=== PATIENT | female | born 1950 | race Caucasian/White ===

== ENCOUNTER 2019-05-05 06:15 | Day surgery (SDC) | payer MEDICARE, OTHER ==
[~2019-05-05] VITALS: Ht 165.1 cm; Wt 80.7 kg
[~2019-05-05 06:15] MED LIST: AMLODIPINE BESY10 MG PO; ASPIRIN EC325 MG PO; ASTELIN137 MCG/0. NS; CALCIUM CITRAT200 MG PO; CARBIDOPA-LEVO1 EAC4 PO; CETIRIZINE HCL10 MG PO; DILAUDID2 MG PO; FLONASE2 SPRAY; LOSARTAN POTASS50 MG PO; MELOXICAM15 MG PO; MIRAPEX0.5 MG PO; NORCO 7.5-3251 EACH PO; OMEPRAZOLE20 MG PO; SIMVASTATIN20 MG PO; VITAMIN C500 M1 PO; VITAMIN D5000 UNIT PO
[2019-05-05] MEDS ORDERED: NEURONTIN400 MG PO (06:37)
[2019-05-05] MEDS ORDERED: NEUPRO1 EAC1 TD (06:51)
[2019-05-05] MEDS ORDERED: ROPINIROLE HC0.25 MG PO (06:52)
[2019-05-05] MEDS ORDERED: LIPITOR40 MG PO (06:53)
[2019-05-05] MEDS ORDERED: ULTRAM50 MG PO (06:54)
[2019-05-05] MEDS ORDERED: LEXAPRO10 MG PO (06:54)
[2019-05-05] MEDS ORDERED: DICLOFENAC SODI75 MG PO (06:54)
[2019-05-05] MEDS ORDERED: ASPIRIN81 MG PO (06:56)
[2019-05-05] MEDS ORDERED: FOLIC ACID0.8 MG PO (06:58)
[2019-05-05] MEDS ORDERED: WOMEN'S 50 PLU1 EACH PO (06:58)
[2019-05-05] MEDS ORDERED: FLONASE ALLERG9.9 ML NAS (06:59)
[2019-05-05] MEDS ORDERED: MAGNESIUM400 M1 PO (06:59)
[2019-05-05] MEDS ORDERED: VITAMIN E400 UNI2 PO (07:00)
[2019-05-05] MEDS ORDERED: PROBIOTIC1 EAC1 PO (07:00)
--- NOTE | 2019-05-05 09:10 | NUR ---
0845 UP TO BR. CONTS TO WAIT. IV PATENT. IN ROOM.
--- NOTE | 2019-05-05 11:25 | NUR ---
05/05/19 1125 Denise Santos 1116 PATIENT ARRIVE TO PACU AWAKE, BUT DROWSY. PATIENT DENIES PAIN OR NAUSEA. RESP EVEN AND UNLABORED, ROOM AIR SATS >93%. 1125 PATIENT DRINKING JUICE AND WATER. SPOUSE AT BEDSIDE.
--- NOTE | 2019-05-05 12:25 | NUR ---
PT ALERT, ORIENTED AND SUPPORTED BY HER BRITTANY. SHE IS WAITING VERY PATIENTLY-EVEN GRABBED A NAP WAITING. NO QUESTIONS, PT REQUESTED PRAYER. WILL FOLLOW NEEDED
--- NOTE | 2019-05-06 16:41 | OR ---
[facility] [address], [place] [address] Signed DATE OF OPERATION: 05/05/2019 SURGEON: Horace Hernandez MD PREOPERATIVE DIAGNOSIS: Longstanding gastroesophageal reflux, clinically managed with PPI medication. POSTOPERATIVE DIAGNOSES: 1. Proximal gastric polyps (mild). 2. Mild distal esophagitis without sign of Garsia's epithelium. PROCEDURE: Esophagogastroduodenoscopy with biopsy. ANESTHESIA: Intravenous sedation, fentanyl 100 mcg, Versed 5 mg. INDICATION: This 68-year-old white woman is a patient of TAO Barreto. She has longstanding gastroesophageal reflux, for which she has been treated with good clinical benefit using omeprazole 20 mg daily. She was advised by her insurance carrier that she should not be on a PPI medication. A directive by [facility] recommended repeat endoscopic evaluation. Notably, she has no family history of esophageal cancer and no symptoms of dysphagia. She does have distant history of breast cancer in the past with recurrence, but no evidence of disease currently. She is admitted at this time to undergo upper endoscopy to better characterize the current status of her esophageal inflammation issue and assess for other gastrointestinal problems. She understands the risks of bleeding, infection, and perforation and wished to proceed. Notably, her last upper endoscopy was 13 years ago. FINDINGS: The esophagus overall looked reasonably well. There was mild chronic distal esophagitis, but no stricture, no varices, no Garsia's epithelium. The flap valve was actually reasonably good. There were a few small proximal gastric polyps, likely related to longstanding PPI use. She had no sign of ulceration or neoplasm elsewhere. CLOtest was negative. DESCRIPTION OF PROCEDURE: The patient was brought to the endoscopy suite and placed in lateral decubitus position, given intravenous sedation to the point of slurred speech and nystagmus. [facility] Electronically Signed By: HORACE HERNANDEZ MD 05/06/19 1641 PATIENT NAME: BRIAN DE LEON OPERATIVE REPORT DATE OF : 50 REPORT #: [id number] PHYSICIAN: HORACE HERNANDEZ MD PCP: BRISA FIGUEREDO PAC REPORT IS CONFIDENTIAL AND NOT TO BE RELEASED WITHOUT AUTHORIZATION [facility] [address], [place] [address] Signed hypopharyngeal spray anesthesia had been given at the outset. A bite block was placed. After satisfactory sedation with full cardiopulmonary monitoring. An Olympus video upper endoscope was passed in the hypopharynx. The vocal cords appeared normal. The scope was advanced to the esophagus. Throughout its length, it looked normal except in the distal portion where there was mild chronic inflammation, but no sign of Garsia's epithelium, stricture, neoplasm or other issue. The scope was advanced to the stomach, which had a fair amount of bilious fluid in it. Rugal folds were normal. Bile was suctioned free. The scope was advanced to the antrum, which appeared normal. Pylorus was normal. Scope was passed through into the duodenum, which was also normal overall. Biopsies were taken to assess for celiac disease. The scope was drawn to the antrum for biopsies for both SUSANA and pathologic testing. Retroflexed view showed scattered proximal gastric polyps. A few installation service representative polyps were excised. The flap valve was relatively good considering her known clinical issue of reflux. The scope was straightened and withdrawn. Biopsies taken of the distal esophagus as well. Midesophageal biopsies were also obtained. The scope was removed. The patient was taken to recovery room in good condition. CONCLUDING DIAGNOSIS: Mild chronic distal esophagitis, well managed with PPI medication, longstanding. No evidence of neoplasm or other issue. PLAN: A change to Pepcid (non PPI medication) can be taken as a trial. I will write for it. She will return to see me in 4-6 weeks. We will assess response to therapy. MD KAYLIE Lu/JODY /[id number] cc: Brisa Figueredo PA-C Copies: BRISA FIGUEREDO PAC Electronically Signed By: HORACE HERNANDEZ MD 05/06/19 1641 PATIENT NAME: BRIAN DE LEON OPERATIVE REPORT DATE OF : 50 REPORT #: [id number] PHYSICIAN: HORACE HERNANDEZ MD PCP: BRISA FIGUEREDO REPORT IS CONFIDENTIAL AND NOT TO BE RELEASED WITHOUT AUTHORIZATION [address] [address] Signed ~ Electronically Signed By: HORACE HERNANDEZ MD 05/06/19 1641 PATIENT NAME: MOISESBRIAN OPERATIVE REPORT DATE OF : 50 REPORT #: [id number] PHYSICIAN: HORACE HERNANDEZ MD PCP: BRISA FIGUEREDO PAC REPORT IS CONFIDENTIAL AND NOT TO BE RELEASED WITHOUT AUTHORIZATION
== END 2019-05-05 12:00 | disposition home or self-care (01) ==
LOC: OPS 06:15 → DS 06:15 → OPS 06:45
PROVIDERS: Surgery
PROC: 0DB78ZX Excision of Stomach, Pylorus, Via Natural or Artificial Opening Endoscopic, Diagnostic (ICD-10-PCS; 2019-05-05)
PROC: 0DB68ZX Excision of Stomach, Via Natural or Artificial Opening Endoscopic, Diagnostic (ICD-10-PCS; 2019-05-05)
PROC: 0DB38ZX Excision of Lower Esophagus, Via Natural or Artificial Opening Endoscopic, Diagnostic (ICD-10-PCS; 2019-05-05)
PROC: 0DB28ZX Excision of Middle Esophagus, Via Natural or Artificial Opening Endoscopic, Diagnostic (ICD-10-PCS; 2019-05-05)
PROC: 0DB98ZX Excision of Duodenum, Via Natural or Artificial Opening Endoscopic, Diagnostic (ICD-10-PCS; principal; 2019-05-05 06:45)
DX: K21.0 Gastro-esophageal reflux disease with esophagitis (principal); K31.7 Polyp of stomach and duodenum; I11.9 Hypertensive heart disease without heart failure; G47.30 Sleep apnea, unspecified; G25.81 Restless legs syndrome; Z88.0 Allergy status to penicillin; Z91.040 Latex allergy status
CPT/HCPCS: 88305; 88313; 99153; G0500; J2250; J3010

== ENCOUNTER 2020-07-01 13:09 | Day surgery (SDC) | payer MEDICARE, OTHER ==
[~2020-07-01] VITALS: Ht 165.1 cm; Wt 80.9 kg
--- NOTE | ~2020-07-01 | OR ---
[facility] [address] [facility] [place], [place] [address] Draft DATE OF OPERATION: 07/01/2020 SURGEON: Horace Hernandez MD PREOPERATIVE DIAGNOSIS: Colon surveillance, last colonoscopy in 2000. POSTOPERATIVE DIAGNOSIS: Diverticulosis, sigmoid and left colon. PROCEDURE: Total colonoscopy to cecum. ANESTHESIA: Intravenous sedation, fentanyl 150 mcg and Versed 7 mg. INDICATIONS: This 69-year-old white woman is a patient of Wyatt Figueredo PA-C. She has a distant history of advanced breast cancer, but has survived this with no evidence of persistent or recurrent disease. She has an unknown family history of colon cancer in fact. She last underwent colonoscopy in 2000, which showed diverticulosis. She is currently asymptomatic. She is here for surveillance colonoscopy, understand the risks of bleeding, infection, and perforation. FINDINGS: The prep was excellent. Complete colonoscopy was undertaken to the cecum without question. She had numerous diverticula of the sigmoid and left colon. Complete colonoscopy was undertaken, showing no sign of polyps or other adverse findings, only diverticulosis. DESCRIPTION OF PROCEDURE: The patient was brought to the endoscopy suite and placed in lateral decubitus position, given intravenous sedation to the point of slurred speech and nystagmus with full cardiopulmonary monitoring. Digital rectal examination was normal. An Olympus video colonoscope was passed into the rectum and manipulated into the sigmoid, where numerous diverticula were seen. The scope was advanced beyond this area, ultimately to the cecum, where the ileocecal valve was easily identified. Cecum intubated and found to be normal as well. Irrigation was undertaken as needed. The scope was then withdrawn, examination throughout showed no sign of polyps or colitis, PATIENT NAME: BRIAN DE LEON OPERATIVE REPORT DATE OF : 50 REPORT #: [id number] PHYSICIAN: HORACE HERNANDEZ MD PCP: WYATT FIGUEREDO REPORT IS CONFIDENTIAL AND NOT TO BE RELEASED WITHOUT AUTHORIZATION [facility] [address] [place] [id number] Draft only diverticular changes were left in the sigmoid colon. Retroflexed view of the rectum was normal. The scope was removed. The patient was taken to the recovery room in good condition. CONCLUDING DIAGNOSIS: Diverticulosis. No sign of polyps. PLAN: Recommend repeat colonoscopy at 75 years of age, 5 years from now or sooner if symptoms should occur. Better definition of her family history would dictate whether she should have colonoscopy beyond that age, specifically if she has family history. Colonoscopy at 5-year intervals would be appropriate still. MD KAYLIE Lu/JODY /[id number] cc: Wyatt Figueredo PA-C Copies: WYATT FIGUEREDO ~ PATIENT NAME: BRIAN DE LEON OPERATIVE REPORT DATE OF : 50 REPORT #: [id number] PHYSICIAN: HORACE HERNANDEZ MD PCP: WYATT FIGUEREDO PAC REPORT IS CONFIDENTIAL AND NOT TO BE RELEASED WITHOUT AUTHORIZATION
[~2020-07-01 13:09] MED LIST changes: +ASPIRIN81 MG PO; +DICLOFENAC SODI75 MG PO; +FLONASE ALLERG9.9 ML NAS; +FOLIC ACID0.8 MG PO; +LEXAPRO10 MG PO; +LIPITOR40 MG PO; +MAGNESIUM400 M1 PO; +NEUPRO1 EAC1 TD; +NEURONTIN400 MG PO; +PROBIOTIC1 EAC1 PO; +ROPINIROLE HC0.25 MG PO; +ULTRAM50 MG PO; +VITAMIN E400 UNI2 PO; +WOMEN'S 50 PLU1 EACH PO
[2020-07-01] MEDS ORDERED: HORIZANT600 MG PO (13:23)
--- NOTE | 2020-07-01 14:39 | NUR ---
07/01/20 1439 Shannan Alatorre 1433- PT ARRIVES TO PACU TALKING. PT REPORTS NO PAIN OR NAUSEA. RESP EVEN AND UNLABORED. OXYGEN SAT MID TO HIGH 90'S ON 3L VIA NC. 1437- OXYGEN TITRATED OFF. PT IS PASSING FLATUS.
== END 2020-07-01 15:18 | disposition home or self-care (01) ==
LOC: OPS 13:09 → DS 13:12 → OPS 14:00
PROVIDERS: ATTEND Surgery
PROC: 0DJD8ZZ Inspection of Lower Intestinal Tract, Via Natural or Artificial Opening Endoscopic (ICD-10-PCS; principal; 2020-07-01 14:00)
DX: Z12.11 Encounter for screening for malignant neoplasm of colon (principal); K57.30 Diverticulosis of large intestine without perforation or abscess without bleeding; I10 Essential (primary) hypertension; K21.9 Gastro-esophageal reflux disease without esophagitis; G25.81 Restless legs syndrome; G47.30 Sleep apnea, unspecified; Z90.49 Acquired absence of other specified parts of digestive tract; Z91.040 Latex allergy status; Z88.0 Allergy status to penicillin; Z91.013 Allergy to seafood; Z91.048 Other nonmedicinal substance allergy status; Z79.899 Other long term (current) drug therapy
CPT/HCPCS: 99153; G0500; J2250; J3010; J7121

== ENCOUNTER 2021-05-17 15:46 | Emergency (ER) | payer MEDICARE, OTHER ==
[~2021-05-17] VITALS: Ht 165.1 cm; Wt 80.7 kg
[~2021-05-17 15:46] MED LIST changes: +HORIZANT600 MG PO
--- OUTSIDE RECORDS SUMMARY | 2021-05-17 15:48 | XMS ---
PreManage Notification: MOISES Security Senior Marketing Coordinator Events No recent Security Events currently on file CRITERIA MET - [facility] C[facility] PROVIDERS There are no care providers on record at this time. Maximo has no Care Guidelines for this patient. Alvin VISIT COUNT (12 MO.) 1 FAVIAN Doran TOTAL 1 NOTE: Visits indicate total known visits. ED/UCC VISIT TRACKING (12 MO.) 05/17/2021 15:47 FAVIAN Bell [place] TYPE: Emergency COMPLAINT: - RIGHT CALF PAIN INPATIENT VISIT TRACKING (12 MO.) No inpatient visits to display in this time frame [email or web address]
== END 2021-05-17 17:29 | disposition home or self-care (01) ==
LOC: ED 15:46
DX: M66.0 Rupture of popliteal cyst (principal); R60.0 Localized edema; Z85.3 Personal history of malignant neoplasm of breast; I10 Essential (primary) hypertension; Z91.013 Allergy to seafood; Z88.0 Allergy status to penicillin; Z91.040 Latex allergy status; Z88.8 Allergy status to other drugs, medicaments and biological substances; Z79.899 Other long term (current) drug therapy; Z79.82 Long term (current) use of aspirin
CPT/HCPCS: 93971; 99285-25

== ENCOUNTER 2021-07-15 05:46 | Day surgery (SDC) | payer MEDICARE, OTHER ==
[~2021-07-15] VITALS: Ht 165.1 cm; Wt 83.0 kg
[~2021-07-15 05:46] MED LIST changes: +CLARITIN10 M2 PO; +OSTERA TABLET1 EACH PO; +PEPCID20 MG PO; +VIT C-ROSE HIP500 MG PO; +ZETIA10 MG PO
--- NOTE | 2021-07-15 10:09 | NUR ---
PT ALERT, ORIENTED AND SUPPORTED BY HER BRITTANY. PT SEEMS PREPARED, ALL QUESTIONS ASKED ANSWERED. PT REQUESTED PRAYER, DR HODGE IN. WILL FOLLOW NEEDED
--- NOTE | 2021-07-15 10:23 | NUR ---
07/15/21 1023 Jamila Babin 1002 PT ARRIVED IN PACU NON RESPONSIVE TO NOXIOUS STIMULI WITH OPA IN PLACE. CHIN LIFT HELD BY RN. 1008 PT REACTIVE. OPA REMOVED. 1020 RESTING. REU. O2 AT 4L VIA NC PLACED. SATS 90-94% ON 2L.
--- NOTE | 2021-07-15 10:50 | NUR ---
PT FROM PACU VIA BED. SHE IS AWAKE TO VOICE AND ALERT. BANDAID DRESSINGS X 3 ARE CLEAN, DRY, AND INTACT. PT REPORTS NO PAIN.
--- NOTE | 2021-07-15 10:52 | NUR ---
PT PROVIDED WITH WATER AND JELLO. ENCOURAGED PT TO DRINK AND EAT.
--- NOTE | 2021-07-16 09:25 | OR ---
[facility] [address], [place] [address] Signed DATE OF OPERATION: 07/15/2021 SURGEON: Horace Hernandez MD REQUESTING PHYSICIAN: Lucho Jaramillo MD. ISSUE: Adherent left adnexal tissue to sigmoid colon. HISTORY OF PRESENT ILLNESS: This 70-year-old white woman is well known to me from the past and is now undergoing a laparoscopic bilateral ovariectomy with Dr. Jaramillo and his medical billing assistant, Dr. MARIEL Cobb. I was consulted intraoperatively as the adnexal structure on the left side appears to be densely adherent to the sigmoid colon and portion of its mesentery. Assistance is asked in excising this particular tissue given its proximity to the bowel. PHYSICAL EXAMINATION: A good and hemostatic pelvic field was noted. Good visualization and optics are noted on the laparoscopic equipment. There appears to be portion of tube and ovary densely adherent to the area of the sigmoid colon and portion of its fatty mesentery. ASSESSMENT: Excision of the tissue still can be undertaken laparoscopically at the request of Dr. Jaramillo, operative intervention was undertaken. The 0-degree laparoscope was changed up for a 30-degree scope. With two-hand manipulation on the left side elevating the parenchyma, blunt dissection was undertaken posteriorly on the ovarian remnant from the fatty mesentery. Using hook cautery, gentle dissection was undertaken freeing the material in an avascular plane. This was dissected free entirely and elevated and a narrow pedicle that remained was divided with Harmonic scalpel technology. The tissue was passed into an endobag and extracted and offloaded. Reinspection of the site allowed for irrigation and security of areas for hemostasis with electrocautery. The operation was returned to Dr. Jaramillo and Dr. Cobb. Electronically Signed By: HORACE HERNANDEZ MD 07/16/21 0925 PATIENT NAME: BRIAN DE LEON PORTER OPERATIVE REPORT DATE OF : 50 REPORT #: [id number] PHYSICIAN: HORACE HERNANDEZ MD PCP: WYATT CALLAWAY PAC REPORT IS CONFIDENTIAL AND NOT TO BE RELEASED WITHOUT AUTHORIZATION [address] [place], [place] [address] Signed MD KAYLIE Lu/JODY /[id number] cc: MD Shant Bridges DO Copies: LUCHO JARAMILLO MD, JAMES D DO ~ Electronically Signed By: HORACE HERNANDEZ MD 07/16/21 0925 PATIENT NAME: BRIAN DE LEON PORTER OPERATIVE REPORT DATE OF : 50 REPORT #: [id number] PHYSICIAN: HORACE HERNANDEZ MD PCP: WYATT CALLAWAY PAC REPORT IS CONFIDENTIAL AND NOT TO BE RELEASED WITHOUT AUTHORIZATION
--- NOTE | 2021-07-23 11:50 | OR ---
[address] [address] Signed DATE OF OPERATION: 07/15/2021 SURGEON: Lucho Jaramillo MD PREOPERATIVE DIAGNOSIS: BRCA gene mutation carrier. POSTOPERATIVE DIAGNOSES: 1. BRCA gene mutation carrier. 2. Extensive pelvic adhesions. PROCEDURES: Laparoscopic bilateral salpingo-oophorectomy with extensive lysis of adhesions and cystoscopy. SOLID WASTE COLLECTION WORKER: Shant Cobb D.O. Intraoperative consult with Dr. Horace Hernandez, General Surgeon ANESTHESIA: General. ESTIMATED BLOOD LOSS: 30 mL. SPECIMENS: Both tubes and ovaries. DRAINS: None. PACKING: None. FINDINGS: Previous hysterectomy with a band of omental adhesions and omental adhesions to the anterior abdominal wall just to the right of the umbilicus. The right tube and ovary were normal in appearance. The left tube and ovary were normal in size and shape, but were adherent to the pelvic sidewall and also closely adherent to the sigmoid colon with Electronically Signed By: LUCHO JARAMILLO MD 07/23/21 1150 PATIENT NAME: BRIAN DE LEON OPERATIVE REPORT DATE OF : 50 REPORT #: [id number] PHYSICIAN: LUCHO JARAMILLO MD PCP: BRISA CALLAWAY PAC REPORT IS CONFIDENTIAL AND NOT TO BE RELEASED WITHOUT AUTHORIZATION [address] [address] Signed the sigmoid colon and also adherent to the pelvic sidewall and covering the tube and ovary. COMPLICATIONS: None. DESCRIPTION OF PROCEDURE: The patient was brought to the operating room and placed in supine position. After adequate general anesthesia was obtained, she was partially placed in dorsal lithotomy position, prepped and draped in usual sterile fashion. Leon catheter was placed in the bladder. Attention then drawn to the abdomen. A small infraumbilical skin incision was made after injecting the area with 0.25% Marcaine with epinephrine. Subcutaneous tissue was dissected with Metzenbaum scissors. The fascia identified, grasped with hemostats, elevated, nicked with Metzenbaum scissors and extended in transverse fashion using Metzenbaum scissors. Retention stitches of 0-Vicryl suture placed above and below the incision. The abdominal musculature and peritoneum were bluntly entered with finger dissection. The omental adhesion could be palpated just to the right of the incision, but it was up out of the way. The Danny cannula and sleeve then entered the abdomen under direct visualization. The balloon of the sleeve was filled with air and then the outer sleeve slid down and tightened in place against the skin. Two retention stitches were attached to the outer sleeve, the trocar removed and laparoscope with video attachment, entered the abdomen under direct visualization. Carbon dioxide was used as distending medium. The above findings were noted. The LigaSure bipolar forceps and blunt dissection was used to start the dissection on the left pelvic sidewall. The peritoneum was grasped, gently pulled away and nicked with LigaSure forceps and the peritoneum opened along the edge of the adhesions. The adhesions from the bowel to the peritoneum were cauterized and cut in the areas where the epiploic fat was the adhesion and no bowel was nearby. This was slowly taken down from different directions until the left tube and ovary could be identified. The infundibulopelvic ligament was finally identified and the peritoneum above this opened and the infundibulopelvic ligament isolated, then cauterized in several places with the LigaSure bipolar forceps and then cut. An Endoloop of 0-Monocryl was placed around the pedicle and tightened in place and the tail cut with laparoscopic scissors. The tube and ovary were then grasped and pulled medially and gently removed from the pelvic sidewall using sharp dissection, blunt dissection, and some bipolar cautery. Care was taken to stay above the area of the ureter with the tube and ovary and finally from the pelvic sidewall. The fallopian tube was cauterized across the proximal portion of cut and removed through the trocar and then the ovary bluntly grasped and elevated and at this point it seemed that the ovary was very closely adherent to the bowel, so General Surgery consult was requested. Please see Dr. Hernandez's note for the dissection of the ovary from the bowel using the monopolar Electronically Signed By: LUCHO JARAMILLO MD 07/23/21 1150 PATIENT NAME: BRIAN DE LEON OPERATIVE REPORT DATE OF : 50 REPORT #: [id number] PHYSICIAN: LUCHO JARAMILLO MD PCP: BRISA CALLAWAY PAC REPORT IS CONFIDENTIAL AND NOT TO BE RELEASED WITHOUT AUTHORIZATION [facility] [address] [place] [id number] Signed current and blunt dissection. This ovary was then placed in the Endopouch and removed through the infraumbilical incision. The right tube and ovary were identified. The infundibulopelvic ligament was identified and and it was cauterized in several places and then cut using the LigaSure bipolar forceps. This pedicle was also tied with an Endoloop of 0-Monocryl, and then the peritoneum along the tube and ovary cauterized and cut while lifting the tube and ovary medially and anteriorly to stay away from the ureter and in this fashion the right tube and ovary removed. The right tube and ovary were similarly placed in laparoscopic pouch and brought through the infraumbilical incision while using the 5 mm scope in the lateral port. The entire pelvis was irrigated, suctioned, and examined, and any superficial bleeding spots were cauterized with either monopolar or bipolar cautery, and when good hemostasis was obtained, the raw areas were sprayed with Tisseel to help with further hemostasis. At this point, all instruments were removed, the gas allowed to escape, and the final sleeve removed. The infraumbilical incision was closed using running stitch of 0-Vicryl suture. The three skin incisions were closed using subcuticular stitches of 4-0 Vicryl suture. Because of the extensive adhesions, the cystoscopy was performed to confirm the ureters were uninvolved. Leon catheter was removed from the bladder and a 70-degree cystoscope placed in the urethra and entered the bladder under direct visualization. Sterile water was used as distending medium as this was inserted. The dome and the sides of the bladder were all carefully inspected and noted to have no defects bruising or puckering. Both ureteral orifices were seen and good flow of urine came from both. At this point, the cystoscope was removed, the bladder drained and the sleeves were removed. The patient tolerated the procedure well, went to the recovery room in good condition. The sponge, needle, and instrument count correct at the end of the procedure. MD MERARI Bridges/JODY /[id number] cc: MD Brisa Lu PA-C Electronically Signed By: LUCHO JARAMILLO MD 07/23/21 1150 PATIENT NAME: BRIAN DE LEON [place] OPERATIVE REPORT DATE OF : 50 REPORT #: [id number] PHYSICIAN: LUCHO JARAMILLO MD PCP: BRISA CALLAWAY REPORT IS CONFIDENTIAL AND NOT TO BE RELEASED WITHOUT AUTHORIZATION [address] [address] Signed Copies: HORACE HERNANDEZ MD, ERIKA PAC ~ Electronically Signed By: LUCHO JARAMILLO MD 07/23/21 1150 PATIENT NAME: BRIAN DE LEON [place] OPERATIVE REPORT DATE OF : 50 REPORT #: [id number] PHYSICIAN: LUCHO JARAMILLO MD PCP: BRISA CALLAWAY PAC REPORT IS CONFIDENTIAL AND NOT TO BE RELEASED WITHOUT AUTHORIZATION
== END 2021-07-15 13:10 | disposition home or self-care (01) ==
LOC: OPS 05:46 → DS 05:46 → OPS 06:45
PROVIDERS: ATTEND General Practice
PROC: 0UT74ZZ Resection of Bilateral Fallopian Tubes, Percutaneous Endoscopic Approach (ICD-10-PCS; 2021-07-15)
PROC: 0UT24ZZ Resection of Bilateral Ovaries, Percutaneous Endoscopic Approach (ICD-10-PCS; principal; 2021-07-15 06:45)
DX: N73.6 Female pelvic peritoneal adhesions (postinfective) (principal); Z15.01 Genetic susceptibility to malignant neoplasm of breast; I10 Essential (primary) hypertension; E78.5 Hyperlipidemia, unspecified; K21.9 Gastro-esophageal reflux disease without esophagitis; Z88.0 Allergy status to penicillin; Z91.040 Latex allergy status; Z91.013 Allergy to seafood; Z20.822 Contact with and (suspected) exposure to COVID-19
CPT/HCPCS: 00840; 88305; J0330; J0461; J1100; J1644; J1885; J2250; J2405; J2704; J2765; J3010; J7121

== ENCOUNTER 2025-07-14 09:30 | Emergency (ER) | payer MEDICARE, OTHER | END 2025-07-14 13:33 | disposition home or self-care (01) | LOC: ED 09:30 | DX: K52.9 Noninfective gastroenteritis and colitis, unspecified (principal); I10 Essential (primary) hypertension; Z91.013 Allergy to seafood; Z88.0 Allergy status to penicillin; Z91.040 Latex allergy status; Z79.2 Long term (current) use of antibiotics; Z79.82 Long term (current) use of aspirin; Z79.899 Other long term (current) drug therapy ==